=== PATIENT | male | born 1995 | race Caucasian/White ===

== ENCOUNTER 2017-12-29 21:24 | Emergency (ER) | payer MEDICAID ==
[~2017-12-29] VITALS: Ht 185.4 cm; Wt 74.8 kg
[2017-12-29 21:39] VITALS: BP 140/79
[2017-12-29] MEDS ORDERED: penicillin G benzathine 1.2 million unit/2ml syringe IM ONE (22:10)
== END 2017-12-29 22:41 | disposition home or self-care (01) ==
LOC: ER 21:24
DX: J02.9 Acute pharyngitis, unspecified (principal); Z90.49 Acquired absence of other specified parts of digestive tract
CPT/HCPCS: 96372; 99283; J0561

== ENCOUNTER 2018-06-18 13:32 | Emergency (ER) | payer MEDICAID ==
[~2018-06-18] VITALS: Ht 185.4 cm; Wt 91.8 kg
[2018-06-18 14:06] VITALS: BP 118/69
== END 2018-06-18 18:01 | disposition home or self-care (01) ==
LOC: ER 13:33
DX: N50.812 Left testicular pain (principal); Z98.890 Other specified postprocedural states; Z90.49 Acquired absence of other specified parts of digestive tract
CPT/HCPCS: 76870; 99284

== ENCOUNTER → 2018-07-31 | Emergency (ER) | payer MEDICAID ==
[~2018-07-31] VITALS: Ht 185.4 cm; Wt 84.0 kg
[~2018-07-31] MED LIST: ketorolac trometh inj. 60 MG/2 ML VIAL IM ONE
[2018-07-31 06:38] VITALS: BP 131/66
== END | disposition home or self-care (01) ==
LOC: ER 06:34
DX: S29.012A Strain of muscle and tendon of back wall of thorax, initial encounter (principal); Z90.49 Acquired absence of other specified parts of digestive tract; Z98.890 Other specified postprocedural states; X50.0XXA Overexertion from strenuous movement or load, initial encounter; Y93.89 Activity, other specified; Y92.89 Other specified places as the place of occurrence of the external cause; Y99.8 Other external cause status
CPT/HCPCS: 96372; 99283; J1885